=== PATIENT | female | born 1970 | race Caucasian/White ===

== ENCOUNTER 2025-09-23 09:54 | Emergency (ER) | payer OTHER ==
[~2025-09-23] VITALS: Ht 172.7 cm; Wt 129.3 kg
[~2025-09-23 09:54] MED LIST: ANAPROX DS550 MG PO; SKELAXIN800 MG PO; VICODIN 500 MG-1 TAB PO
[2025-09-23 10:23] LABS: BASO # 0.0 10*3/uL (0.0-0.1); BASO % 0.7 % (0.0-1.0); EOS # 0.2 10*3/uL (0.0-0.4); EOS % 3.0 % (1.0-4.0); MEAN CELL VOLUME 79.1 fl (81.0-99.0); MEAN CORPUSCULAR HGB 25.6 pg (27.0-31.0); MEAN PLATELET VOLUME 9.8 fl (9.6-12.3); MONO # 0.4 10*3/uL (0.1-1.0); MONO % 6.5 % (3.0-9.0); NEUT # 3.1 10*3/uL (2.3-7.9); NEUT % 55.9 % (47.0-73.0); NUCLEATED RED BLOOD CELL 0.0 % (0.0-0.0); NUCLEATED RED BLOOD CELL 0.0 10*3/uL (0.0-0.0); PLATELET COUNT AUTOMATED 157 10*3/uL (130-400); RED CELL DISTRI WIDTH 14.6 % (0-14.5)
[2025-09-23 10:53] LABS: BUN 12 mg/dl (9-23); SGPT/ALT 17 U/L (5-49)
== END 2025-09-23 13:08 | disposition home or self-care (01) ==
LOC: ED 09:54
PROVIDERS: Student in an Organized Health Care Education/Training Program
DX: R07.89 Other chest pain (principal); I10 Essential (primary) hypertension; K21.9 Gastro-esophageal reflux disease without esophagitis; E11.9 Type 2 diabetes mellitus without complications; J45.909 Unspecified asthma, uncomplicated; E03.9 Hypothyroidism, unspecified; Z98.890 Other specified postprocedural states; Z88.8 Allergy status to other drugs, medicaments and biological substances